=== PATIENT | female | born 1955 | race Caucasian/White ===

== ENCOUNTER 2019-02-06 22:47 | Emergency (ER) | payer OTHER ==
[2019-02-07] MEDS ORDERED: CYCLOBENZAPRINE HCL 10 MG TABLET PO ONE (00:37)
[2019-02-07] MEDS ORDERED: HYDROCODONE/ACETAMINOPHEN 5-325 MG TABLET PO ONE (00:37)
[2019-02-07 00:39] VITALS: BP 148/90
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
== END 2019-02-07 00:50 | disposition home or self-care (01) ==
LOC: ER 22:47
DX: S16.1XXA Strain of muscle, fascia and tendon at neck level, initial encounter (principal); S39.012A Strain of muscle, fascia and tendon of lower back, initial encounter; X50.0XXA Overexertion from strenuous movement or load, initial encounter; Y93.89 Activity, other specified; Y92.810 Car as the place of occurrence of the external cause; I10 Essential (primary) hypertension; Z87.891 Personal history of nicotine dependence
CPT/HCPCS: 99283